=== PATIENT | female | born 1980 | race African-American/Black ===

== ENCOUNTER 2019-11-16 21:14 | Emergency (ER) | payer MEDICAID ==
[~2019-11-16] VITALS: Ht 165.1 cm; Wt 73.0 kg
[~2019-11-16 21:14] MED LIST: ALBUTEROL
[2019-11-17 00:17] LABS: BASOPHILS % 1.2 % (0.0-2.0); EOSINOPHILS % 5.8 % (0.0-5.0); LYMPHOCYTES % 60.1 % (20.0-50.0); MEAN CORPUSCULAR HEMOGLOBIN 31.1 pg (28.0-32.0); MEAN CORPUSCULAR VOLUME 91.5 fL (81.0-99.0); MEAN PLATELET VOLUME 7.8 fl (7.4-10.4); MONOCYTES % 9.6 % (2.0-8.0); NEUTROPHILS % 23.3 % (40.0-76.0); PLATELET 282 x1000/uL (130-400); RED BLOOD CELL COUNT 4.81 mill/uL (4.2-5.4); RED CELL DISTRIBUTION WIDTH 13.2 % (11.6-14.6)
[2019-11-17 00:18] LABS: CLARITY URINE CLOUDY (CLEAR); COLOR URINE YELLOW (YELLOW); KETONES URINE NEGATIVE (NEGATIVE); LEUKOCYTE ESTERASE URINE NEGATIVE (NEGATIVE); NITRITE URINE NEGATIVE (NEGATIVE); OCCULT BLOOD URINE 1+ (NEGATIVE); PH URINE 5.5 (4.5-8.0); PROTEIN URINE TRACE (NEGATIVE); SPECIFIC GRAVITY URINE 1.035 (1.005-1.030)
[2019-11-17 00:24] LABS: CHLORIDE 105 mEq/L (98-107)
[2019-11-17 00:25] LABS: PROTHROMBIN TIME 10.9 sec (9.6-11.0)
[2019-11-17 00:26] LABS: HCG SCREEN NEGATIVE
[2019-11-17] MEDS ORDERED: CEFTRIAXONE SODIUM 250 MG/VIAL IM ONE (01:15)
[2019-11-17] MEDS ORDERED: AZITHROMYCIN 500 MG TABLET PO SCH (01:15)
[2019-11-17] MEDS ORDERED: ACETAMINOPHEN 325MG TABLET PO ONE (02:00)
[2019-11-17 02:27] VITALS: BP 138/74
[2019-11-19 07:11] LABS: NEISSERIA GONORRHOEAE NAA Negative (Negative)
== END 2019-11-17 02:28 | disposition home or self-care (01) ==
LOC: ER 21:14
DX: R10.9 Unspecified abdominal pain (principal); N89.8 Other specified noninflammatory disorders of vagina; J45.909 Unspecified asthma, uncomplicated; F20.9 Schizophrenia, unspecified; Z88.6 Allergy status to analgesic agent
CPT/HCPCS: 36415; 80053; 81003; 81025; 83690; 84703; 85025; 85610; 87491; 87591; 96372; 99283; J0696

== ENCOUNTER 2023-12-31 00:30 | Emergency (ER) | payer MEDICARE, MEDICAID ==
[~2023-12-31] VITALS: Ht 165.1 cm; Wt 74.0 kg
[2023-12-31] MEDS ORDERED: LORAZEPAM 2MG/ML INJ IV STA (00:41)
[2023-12-31 00:42] VITALS: O2SAT 99
[2023-12-31] MEDS: SODIUM CHLORIDE 0.9% 1,000 ML IV ONE (00:45)
[2023-12-31] MEDS: DIPHENHYDRAMINE 25MG CAPSULE PO ONE (00:45)
[2023-12-31] MEDS: QUETIAPINE FUMARATE 50MG TABLET PO SCH (00:45)
[2023-12-31 01:10] LABS: BASOPHILS % 0.6 % (0.0-2.0); DIFFERENTIAL COMMENT 0; EOSINOPHILS % 1.2 % (0.0-5.0); HEMATOCRIT. 30.9 % (36.0-48.0); HEMOGLOBIN. 9.7 g/dL (12.0-16.0); LYMPHOCYTES % 18.1 % (20.0-50.0); MEAN CORPUSCULAR HEMOGLOBIN 24.8 pg (28.0-32.0); MEAN CORPUSCULAR HGB CONC 31.4 g/dL (31.0-37.0); MEAN PLATELET VOLUME 7.3 fl (7.4-10.4); MONOCYTES % 10.9 % (2.0-8.0); NEUTROPHILS % 69.2 % (40.0-76.0); PLATELET 638 x1000/uL (130-400); RED BLOOD CELL COUNT 3.92 mill/uL (4.2-5.4); WHITE BLOOD COUNT 11.1 x1000/uL (4.5-11.0)
[2023-12-31 01:14] LABS: ACETAMINOPHEN < 2 ug/mL (10-30); ALANINE AMINOTRANSFERASE 15 IU/L (10-49); ALBUMIN 4.3 g/dL (3.2-4.8); ASPARTATE AMINOTRANSFERASE 31 IU/L (<34); BILIRUBIN TOTAL 0.3 mg/dL (0.1-1.0); CALCIUM 9.4 mg/dL (8.7-10.4); CARBON DIOXIDE 22 mEq/L (21-32); CHLORIDE 106 mEq/L (98-107); GLUCOSE 92 mg/dL (70-105); POTASSIUM 3.8 mEq/L (3.5-5.1); PROTEIN TOTAL 7.1 g/dL (6.0-8.3); SODIUM 138 mEq/L (136-145); UREA NITROGEN BLOOD 15 mg/dL (9-23)
[2023-12-31 01:42] LABS: HCG SCREEN NEGATIVE
[2023-12-31 01:55] LABS: ETHANOL BLOOD < 10 mg/dL (<10)
[2023-12-31] MEDS: LORAZEPAM 2MG/ML INJ IV NR (03:26)
[2023-12-31] MEDS: DIPHENHYDRAMINE 25MG CAPSULE PO NR (03:30)
[2023-12-31 13:10] VITALS: BP 119/72; PULSE 88; RESP 20; TEMP 98
== END 2023-12-31 13:46 | disposition home or self-care (01) ==
LOC: ER 00:30
DX: F23 Brief psychotic disorder (principal); R20.2 Paresthesia of skin; Z91.148 Patient's other noncompliance with medication regimen for other reason
CPT/HCPCS: 80053; 80307; 80329; 80320; 84703; 85025; 36415; 96361; 96374; 99285; J2060; J7030; Q0163; G0480